=== PATIENT | female | born 1960 | race Caucasian/White ===

== ENCOUNTER 2016-04-21 23:53 | Emergency (ER) | payer OTHER ==
[2016-04-22] MEDS ORDERED: OXYCODONE/APAP 5/325 TAB ONE (03:42)
[2016-04-22] MEDS ORDERED: CEFTRIAXONE 1 GM VIAL ONE (03:43)
== END 2016-04-22 04:22 | disposition home or self-care (01) ==
LOC: ER 23:53
CPT/HCPCS: 76830 ×2; 96372 ×2; 99285; J0696